=== PATIENT | female | born 1985 | race Caucasian/White ===

== ENCOUNTER 2016-12-21 23:51 | Emergency (ER) | payer SELFPAY ==
[~2016-12-21] VITALS: Ht 165.1 cm; Wt 68.0 kg
[2016-12-21 23:58] VITALS: BP 120/78; PULSE 68; RESP 16; TEMP 98.4; O2SAT 99
[2016-12-22] MEDS ORDERED: ZOLO25TA PO (00:09)
[2016-12-22] MEDS ORDERED: METH5TAB PO (00:09)
[2016-12-22] MEDS ORDERED: VIST25CA PO (00:09)
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
[2016-12-22] MEDS ORDERED: NALOXONE HCL 0.4 MG/ML AMP IM PRN (00:30)
[2016-12-22] MEDS ORDERED: ROBA500T PO (01:17)
[2016-12-22] MEDS ORDERED: DICL75TA PO (01:17)
[2016-12-22] MEDS ORDERED: NAPROXEN 500 MG TAB PO ONE (01:30)
[2016-12-22] MEDS ORDERED: METHOCARBAMOL 500 MG TAB PO ONE (01:30)
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
[2016-12-22 02:02] VITALS: BP 118/74; PULSE 88; RESP 16; O2SAT 99
[2016-12-22 04:30] VITALS: BP 122/76; PULSE 90; RESP 14; O2SAT 98
== END 2016-12-22 06:31 | disposition home or self-care (01) ==
LOC: NEPD 23:51
DX: M54.2 Cervicalgia (principal); M54.5 Low back pain; M79.652 Pain in left thigh; T50.901A Poisoning by unspecified drugs, medicaments and biological substances, accidental (unintentional), initial encounter; Z86.59 Personal history of other mental and behavioral disorders; V89.2XXA Person injured in unspecified motor-vehicle accident, traffic, initial encounter
CPT/HCPCS: 72040; 72100; 96372; 99284; J2310